=== PATIENT | female | born 1995 | race Two or more races ===

== ENCOUNTER 2016-10-28 16:39 | Emergency (ER) | payer OTHER ==
[2016-10-28 16:48] VITALS: BP 114/88
[2016-10-28] MEDS ORDERED: ONDANSETRON HCL INJ/PF 4 MG/2 ML SDV IV ONE (17:52)
[2016-10-28] MEDS ORDERED: NORMAL SALINE 1000 ML 1,000 ML IV PRN (17:52)
[2016-10-28 18:32] LABS: ABSOLUTE BASOPHILS # (AUTO) 0.1 10^3/uL (0.0-0.2); ABSOLUTE LYMPHOCYTES (AUTO) 2.1 10^3/uL (0.5-4.7); ABSOLUTE MONOCYTES (AUTO) 0.9 10^3/uL (0.1-1.4); ABSOLUTE NEUT (AUTO) 5.8 10^3/uL (1.7-8.2); BASOPHILS % (AUTO) 1.1 % (0-2); EOSINOPHILS % (AUTO) 0.4 % (0-6); HEMATOCRIT 50.1 % (36.0-47.0); HEMOGLOBIN 16.3 g/dL (12.0-15.5); HGB HCT DIFFERENCE -1.2; LYMPHOCYTES % (AUTO) 23.3 % (13-45); MEAN CORPUSCULAR HEMOGLOBIN 28.9 pg (27.0-33.4); MEAN CORPUSCULAR HGB CONC 32.5 g/dL (32.0-36.0); MEAN CORPUSCULAR VOLUME 89 fl (80-97); MONOCYTES % (AUTO) 10.2 % (3-13); RED BLOOD COUNT 5.63 10^6/uL (3.72-5.28); RED CELL DISTRIBUTION WIDTH 14.8 % (11.5-14.0)
--- NOTE | 2016-10-28 18:38 | ER Document Report ---
ED Medical Screen (RME) - General Chief Complaint: Headache Stated Complaint: HEADACHE,NAUSEA Time Seen by Provider: 10/28/16 17:51 Mode of Arrival: Ambulatory Information source: Patient - HPI Onset: Yesterday Onset/Duration: Gradual, Constant Quality of pain: Dull Associated Symptoms: Nausea Similar symptoms previously: Yes Notes: 10/28/16 18:36 Patient is a 21-year-old female who is visiting from out of town. Patient has history of type 1 diabetes. Patient is on insulin. Patient presents with several days of headache, nausea, and generalized weakness. Patient feels like her blood sugar is elevated. Patient reports last fingerstick at home was 120. No fevers or chills. Denies any urinary complaints. Patient has been in DKA in the past. - Related Data Allergies/Adverse Reactions: amoxicillin Allergy (Verified 10/28/16 17:47) Past Medical History - General Information source: Patient - Social History Frequency of alcohol use: None Drug Abuse: Marijuana Endocrine Medical History: Reports: Hx Diabetes Mellitus Type 1 Renal/ Medical History: Denies: Hx Peritoneal Dialysis Review of Systems - Review of Systems Gastrointestinal: Nausea Neurological/Psychological: Headaches -: Yes All other systems reviewed and negative Physical Exam - Vital signs Vitals: Temp Pulse Resp BP Pulse Ox 97.6 F 125 H 12 114/88 H 98 10/28/16 16:45 10/28/16 16:45 10/28/16 16:45 10/28/16 16:45 10/28/16 16:45 Interpretation: Normal - General General appearance: Appears well, Alert - HEENT Head: Normocephalic, Atraumatic Eyes: Normal Pupils: PERRL - Respiratory Respiratory status: No respiratory distress Chest status: Nontender Breath sounds: Normal Chest palpation: Normal - Cardiovascular Rhythm: Regular Heart sounds: Normal auscultation Murmur: No - Abdominal Inspection: Normal Distension: No distension Bowel sounds: Normal Tenderness: Nontender Organomegaly: No organomegaly - Back Back: Normal, Nontender - Extremities General upper extremity: Normal inspection, Nontender, Normal color, Normal ROM , Normal temperature General lower extremity: Normal inspection, Nontender, Normal color, Normal ROM , Normal temperature, Normal weight bearing. No: Lauryn's sign - Neurological Neuro grossly intact: Yes Cognition: Normal Orientation: AAOx4 [place] Coma Scale Eye Opening: Spontaneous [place] Coma Scale Verbal: Oriented [place] Coma Scale Motor: Obeys Commands [place] Coma Scale Total: 15 Speech: Normal Motor strength normal: LUE, RUE, LLE, RLE Sensory: Normal - Psychological Associated symptoms: Normal affect, Normal mood - Skin Skin Temperature: Warm Skin Moisture: Dry Skin Color: Normal Course - Vital Signs Vital signs: Temp Pulse Resp BP Pulse Ox 97.6 F 125 H 18 114/88 H 98 10/28/16 16:45 10/28/16 16:45 10/28/16 17:45 10/28/16 16:45 10/28/16 16:45 - Laboratory Result Diagrams: 10/28/16 18:15 10/28/16 18:15 Laboratory results interpreted by me: 10/28/16 18:04 POC Glucose 200 H
[2016-10-28 19:09] LABS: APPEARANCE,URINE SLIGHTLY-CLOUDY; BILIRUBIN,URINE SMALL (NEGATIVE); GLUCOSE, URINE >=500 mg/dL (NEGATIVE); KETONES,URINE 80 mg/dL (NEGATIVE); LEUKOCYTE ESTERASE,URINE NEGATIVE (NEGATIVE); NITRITE,URINE NEGATIVE (NEGATIVE); PROTEIN,URINE >=500 mg/dL (NEGATIVE); URINE SPECIFIC GRAVITY 1.028
[2016-10-28 19:53] LABS: ALANINE AMINOTRANSFERASE 29 U/L (9-52); ALBUMIN 4.8 g/dL (3.5-5.0); ALKALINE PHOSPHATASE 153 U/L (38-126); ASPARTATE AMINO TRANSFERASE 17 U/L (14-36); BILIRUBIN,DIRECT 0.4 mg/dL (0.0-0.4); BILIRUBIN,TOTAL 0.8 mg/dL (0.2-1.3); BLOOD UREA NITROGEN 13 mg/dL (7-20); CALCIUM 9.6 mg/dL (8.4-10.2); CREATININE RESULT 0.76 mg/dL (0.52-1.25); GLUCOSE 273 mg/dL (75-110); TOTAL PROTEIN 8.9 g/dL (6.3-8.2)
[2016-10-28 20:04] LABS: CARBON DIOXIDE 14 mmol/L (22-30); CHLORIDE 99 mmol/L (98-107); POTASSIUM 4.5 mmol/L (3.6-5.0)
[2016-10-28 20:10] LABS: ANION GAP 21 (5-19)
== END 2016-10-28 20:54 | disposition home or self-care (01) ==
LOC: ER 16:39
DX: R11.10 Vomiting, unspecified (principal); R51 Headache; E10.9 Type 1 diabetes mellitus without complications; Z79.4 Long term (current) use of insulin; R53.1 Weakness
CPT/HCPCS: 99284; 96361; 96374; 36415; 82962; 85025; 81025; 80053; 81001; J2405; J7030

== ENCOUNTER 2016-12-25 13:34 | Inpatient (IN) | payer OTHER ==
--- NOTE | 2016-12-25 13:54 | ER Document Report ---
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 Threw up this am x 4, woke up with sore throat and headache. Coma admission from DKA in June 2016 in [place]. Now lives here with dad, not established with local MD. Ketotic odor upon my entry into the room. pulse 103, pulse ox 98%, respiratory rate 20. Zofran given by EMS. Denies chest pain, has mild epigastric pain. No dysuria. Blood glucose HH today, insulin given at 1300 10 units of novolog in the 500's. Has not taken insulin in 3 days. Levimir 24u in am, Novolog 6 u prior to eating, none at night. PMH: genital herpes,DM1, psoriasis, anemis, , wisdom tooth extraction. - Related Data Allergies/Adverse Reactions: amoxicillin Allergy (Verified 12/25/16 14:09) Home Medications: Current Home Medications Insulin Aspart [Novolog Flexpen] 6 unit SUBCUT BIDACBS 12/25/16 [History] Insulin Detemir [Levemir Insulin 300 Units/3 ml Insuln.pen] 24 unit SUBCUT DAILY 12/25/16 [History] Past Medical History - General Information source: Patient - Social History Smoking Status: Never Smoker Frequency of alcohol use: None Drug Abuse: None Lives with: Family - dad Family History: Reviewed & Not Pertinent Endocrine Medical History: Reports: Hx Diabetes Mellitus Type 1 Renal/ Medical History: Denies: Hx Peritoneal Dialysis Past Surgical History: Reports: Other - Review of Systems - Review of Systems Constitutional: See HPI EENT: No symptoms reported Cardiovascular: No symptoms reported Respiratory: No symptoms reported Gastrointestinal: No symptoms reported Genitourinary: No symptoms reported Female Genitourinary: No symptoms reported Musculoskeletal: No symptoms reported Skin: No symptoms reported Hematologic/Lymphatic: No symptoms reported Neurological/Psychological: No symptoms reported Physical Exam - Vital signs Vitals: Resp BP Pulse Ox 21 H 139/93 H 100 12/25/16 13:45 12/25/16 13:45 12/25/16 13:45 Interpretation: Tachycardic, Tachypneic - General General appearance: Alert Notes: looks dry - HEENT Head: Normocephalic, Atraumatic Eyes: Normal Conjunctiva: Normal Pupils: PERRL Mucous membranes: Dry Pharynx: Normal Neck: Supple. No: Lymphadenopathy - Respiratory Respiratory status: No respiratory distress Chest status: Nontender Breath sounds: Normal Chest palpation: Normal - Cardiovascular Rhythm: Regular Heart sounds: Normal auscultation Murmur: No - Abdominal Inspection: Normal Distension: No distension Bowel sounds: Normal Tenderness: Nontender Organomegaly: No organomegaly. No: Hepatomegaly, Splenomegaly - Back Back: Normal, Nontender. No: CVA tenderness - Extremities General upper extremity: Normal inspection, Nontender, Normal color, Normal ROM , Normal temperature General lower extremity: Normal inspection, Nontender, Normal color, Normal ROM , Normal temperature, Normal weight bearing. No: Lauryn's sign - Neurological Neuro grossly intact: Yes Cognition: Normal Orientation: AAOx4 [place] Coma Scale Eye Opening: Spontaneous [place] Coma Scale Verbal: Oriented [place] Coma Scale Motor: Obeys Commands [place] Coma Scale Total: 15 Speech: Normal Motor strength normal: LUE, RUE, LLE, RLE Sensory: Normal - Psychological Associated symptoms: Normal affect, Normal mood - Skin Skin Temperature: Warm Skin Moisture: Dry Skin Color: Normal Skin irregularity: negative: Rash Course - Re-evaluation Re-evalutation: 12/25/16 15:[address] galloway who will admit the patient [facility]. Based on the chemistry results he wants 6 units of insulin IV and a 5 U/h insulin drip. Give second liter of normal saline bolus of normal saline at 150 an hour and Accu-Cheks per hour. Patient understands and is willing to stay for admission. 12/25/16 17:40 accucheck down to 91 after 6 units IV and 5 units in [address] galloway orders, insulin drip held, nurse calling dr galloway. accucheck repeated, 95. NS last 500ml ordered. pt looks better. pulse 110. - Vital Signs Vital signs: Temp Pulse Resp BP Pulse Ox 97.7 F 108 H 19 112/55 L 100 12/25/16 13:57 12/25/16 13:57 12/25/16 17:01 12/25/16 17:01 12/25/16 17:01 - Laboratory Result Diagrams: 12/25/16 14:39 12/25/16 14:39 Laboratory results interpreted by me: 12/25/16 12/25/16 12/25/16 14:20 14:39 14:39 WBC 12.4 H MCHC 31.2 L Seg Neutrophils % 89.0 H Lymphocytes % 7.4 L Monocytes % 2.9 L Absolute Neutrophils 11.0 H VBG pH 7.02 L* VBG pCO2 30.8 L VBG HCO3 7.8 L Carbon Dioxide Glucose Direct Bilirubin AST Alkaline Phosphatase Total Protein Urine Protein 100 H Urine Glucose (UA) >=500 H Urine Ketones 80 H 12/25/16 14:39 WBC MCHC Seg Neutrophils % Lymphocytes % Monocytes % Absolute Neutrophils VBG pH VBG pCO2 VBG HCO3 Carbon Dioxide < 5 L* Glucose 446 H* Direct Bilirubin 0.5 H AST 37 H Alkaline Phosphatase 186 H Total Protein 9.3 H Urine Protein Urine Glucose (UA) Urine Ketones Discharge - Discharge Clinical Impression: Diabetes diagnosis denial, Noncompliance with insulin home regiment Diabetic ketoacidosis Qualifiers: Diabetes mellitus type: type 1 Diabetes mellitus complication detail: without coma Qualified Code(s): E10.10 - Type 1 diabetes mellitus with ketoacidosis without coma Condition: Serious Disposition: ADMITTED INPATIENT Admitting Provider: Hospitalist Unit Admitted: DASH
[2016-12-25] MEDS ORDERED: NORMAL SALINE 1000 ML 1,000 ML IV ONE ×3 (13:55→15:46)
[2016-12-25 14:35] LABS: APPEARANCE,URINE CLEAR; BILIRUBIN,URINE NEGATIVE (NEGATIVE); GLUCOSE, URINE >=500 mg/dL (NEGATIVE); KETONES,URINE 80 mg/dL (NEGATIVE); LEUKOCYTE ESTERASE,URINE NEGATIVE (NEGATIVE); NITRITE,URINE NEGATIVE (NEGATIVE); PROTEIN,URINE 100 mg/dL (NEGATIVE); URINE SPECIFIC GRAVITY 1.025; UROBILINOGEN,URINE NEGATIVE mg/dL (<2.0)
[2016-12-25 15:06] LABS: VENOUS BLOOD BASE EXCESS -22.3 mmol/L; VENOUS BLOOD HCO3 7.8 mmol/L (20-32); VENOUS BLOOD PCO2 30.8 mmHg (35-63)
[2016-12-25 15:11] LABS: ABSOLUTE BASOPHILS # (AUTO) 0.1 10^3/uL (0.0-0.2); ABSOLUTE LYMPHOCYTES (AUTO) 0.9 10^3/uL (0.5-4.7); ABSOLUTE MONOCYTES (AUTO) 0.4 10^3/uL (0.1-1.4); BASOPHILS % (AUTO) 0.7 % (0-2); HEMATOCRIT 46.3 % (36.0-47.0); HEMOGLOBIN 14.4 g/dL (12.0-15.5); HGB HCT DIFFERENCE -3.1; LYMPHOCYTES % (AUTO) 7.4 % (13-45); MEAN CORPUSCULAR HEMOGLOBIN 29.7 pg (27.0-33.4); MEAN CORPUSCULAR HGB CONC 31.2 g/dL (32.0-36.0); MEAN CORPUSCULAR VOLUME 95 fl (80-97); MONOCYTES % (AUTO) 2.9 % (3-13); RED BLOOD COUNT 4.87 10^6/uL (3.72-5.28); RED CELL DISTRIBUTION WIDTH 13.7 % (11.5-14.0); WHITE BLOOD COUNT 12.4 10^3/uL (4.0-10.5)
[2016-12-25 15:15] LABS: VENOUS BLOOD PH 7.02 (7.30-7.42)
[2016-12-25 15:40] LABS: ALANINE AMINOTRANSFERASE 25 U/L (9-52); ALKALINE PHOSPHATASE 186 U/L (38-126); ASPARTATE AMINO TRANSFERASE 37 U/L (14-36); BILIRUBIN,DIRECT 0.5 mg/dL (0.0-0.4); BILIRUBIN,TOTAL 0.6 mg/dL (0.2-1.3); BLOOD UREA NITROGEN 14 mg/dL (7-20); CALCIUM 9.7 mg/dL (8.4-10.2); CHLORIDE 103 mmol/L (98-107); CREATININE RESULT 0.83 mg/dL (0.52-1.25); LIPASE 25.3 U/L (23-300); SODIUM 140.5 mmol/L (137-145); TOTAL PROTEIN 9.3 g/dL (6.3-8.2)
[2016-12-25] MEDS ORDERED: INSULIN REG, HUMAN 100 UNIT/ML 3 ML VIAL (PYX) IV ONE (15:45)
[2016-12-25] MEDS ORDERED: GLUCAGON,HUMAN RECOMB 1 MG INJ IM PRN ×2 (15:48→18:24)
[2016-12-25] MEDS ORDERED: DEXTROSE 50%-WATER 25 GM/50 ML DISP.SYRIN IV PRN ×4 (15:48→18:24)
[2016-12-25] MEDS ORDERED: NORMAL SALINE 100 ML with INSULIN REGULAR, HUMAN 100 UNIT IV PRN ×4 (15:48→18:26)
[2016-12-25] MEDS ORDERED: DEXTROSE 40% GEL 15 GM TUBE PO PRN ×4 (15:48→18:24)
[2016-12-25 15:50] LABS: GLUCOSE 446 mg/dL (75-110)
[2016-12-25 15:51] LABS: CARBON DIOXIDE < 5 mmol/L (22-30)
[2016-12-25] MEDS ORDERED: INSULIN REG, HUMAN 100 UNIT/ML 3 ML VIAL (PYX) ONE (16:05)
[2016-12-25] MEDS ORDERED: DEXTROSE 5%-1/2 NORMAL SALINE 1,000 ML IV PRN (18:24)
[2016-12-25] MEDS ORDERED: ONDANSETRON HCL INJ/PF 4 MG/2 ML SDV IV PRN (18:41)
[2016-12-25] MEDS ORDERED: ACETAMINOPHEN 325 MG TABLET PO PRN (18:41)
--- NOTE | 2016-12-25 19:01 | PDOC H&P ---
History of Present Illness Admission Date/PCP: 12/25/16 18:30 Patient complains of: Nausea vomiting and abdominal pain History of Present Illness: JOSE ALFREDO LORENZO is a 21 year old female With history of insulin-dependent diabetes mellitus missed her insulin dose yesterday while at work went home and sleep and upon waking up this morning developed nausea vomiting and abdominal pain. Denies any chills or fever. No melena hematochezia or hematemesis. No dysuria urgency or frequency. No diarrhea or constipation. No vaginal discharge or bleeding. The patient went back to work but his her symptoms did not worsen therefore went to the emergency room for evaluation. Patient felt generally weak. In the emergency room blood sugar was elevated, her anion gap is immeasurable, bicarbonate was less than 5. Patient was given 6 units of IV insulin and started on insulin drip at 5 U/h. Eventually her blood sugar trended down to normal and the insulin drip was held. Dextrose IV fluid was started after initial hydration of normal saline boluses were given. The patient was then admitted. Past Medical History Endocrine Medical History: Reports: Diabetes Mellitus Type 1 Hematology: Reports: Anemia Past Surgical History Past Surgical History: Reports: Other - , dental extraction Social History Information Source: Patient Lives with: Family - dad Smoking Status: Current Some Day Smoker Frequency of Alcohol Use: Occasional Hx Recreational Drug Use: No Drugs: None Family History Family History: None Parental Family History Reviewed: Yes Children Family History Reviewed: Yes Sibling(s) Family History Reviewed.: Yes Medication/Allergy Home Medications: Insulin Aspart [Novolog Flexpen] 6 unit SUBCUT BIDACBS 12/25/16 Insulin Detemir [Levemir Insulin 300 Units/3 ml Insuln.pen] 24 unit SUBCUT DAILY 12/25/16 Allergies/Adverse Reactions: amoxicillin Allergy (Verified 12/25/16 14:09) Review of Systems Constitutional: PRESENT: weakness - Generalized. ABSENT: chills, fever(s), headache(s), weight gain, weight loss Eyes: ABSENT: visual disturbances Ears: ABSENT: hearing changes Nose, Mouth, and Throat: ABSENT: mouth pain, sore throat Cardiovascular: ABSENT: chest pain, dyspnea on exertion, edema, orthropnea, palpitations Respiratory: ABSENT: cough, dyspnea, hemoptysis, sputum Gastrointestinal: PRESENT: abdominal pain, nausea, vomiting. ABSENT: coffee ground emesis, constipation, diarrhea, hematemesis, hematochezia, melena Genitourinary: ABSENT: difficulty urinating, dysuria, hematuria Musculoskeletal: ABSENT: back pain, deformity, joint swelling Integumentary: ABSENT: pruritus, rash, wounds Neurological: ABSENT: abnormal gait, abnormal speech, confusion, dizziness, focal weakness, syncope Psychiatric: ABSENT: anxiety, depression, homidical ideation, suicidal ideation Endocrine: PRESENT: polyphagia, polyuria. ABSENT: cold intolerance, heat intolerance, polydipsia Hematologic/Lymphatic: ABSENT: easy bleeding, easy bruising Physical Exam Vital Signs: Temp Pulse Resp BP Pulse Ox 97.7 F 108 H 19 112/55 L 100 12/25/16 13:57 12/25/16 13:57 12/25/16 17:01 12/25/16 17:01 12/25/16 17:01 General appearance: PRESENT: no acute distress, well-developed, well-nourished Head exam: PRESENT: atraumatic, normocephalic Eye exam: PRESENT: conjunctiva pink, EOMI, PERRLA. ABSENT: scleral icterus Ear exam: PRESENT: normal external ear exam Mouth exam: PRESENT: moist, neck supple, tongue midline Throat exam: ABSENT: post pharyngeal erythema, tonsillar erythema, tonsillar exudate Neck exam: ABSENT: carotid bruit, JVD, lymphadenopathy, thyromegaly Respiratory exam: PRESENT: clear to auscultation aba, unlabored. ABSENT: rales , rhonchi, wheezes Cardiovascular exam: PRESENT: RRR. ABSENT: diastolic murmur, rubs, systolic murmur Pulses: PRESENT: normal dorsalis pedis pul Vascular exam: PRESENT: normal capillary refill GI/Abdominal exam: PRESENT: hyperactive bowel sounds, soft. ABSENT: distended, guarding, mass, organolmegaly, rebound, tenderness Rectal exam: PRESENT: deferred Extremities exam: PRESENT: full ROM. ABSENT: calf tenderness, clubbing, pedal edema Neurological exam: PRESENT: alert, awake, oriented to person, oriented to place , oriented to time, oriented to situation Psychiatric exam: PRESENT: appropriate affect, normal mood. ABSENT: homicidal ideation, suicidal ideation Skin exam: PRESENT: dry, intact, warm. ABSENT: cyanosis, rash Assessment & Plan - Diagnosis (1) Diabetic ketoacidosis Qualifiers: Diabetes mellitus type: type 1 Diabetes mellitus complication detail: without coma Qualified Code(s): E10.10 - Type 1 diabetes mellitus with ketoacidosis without coma Is this a current diagnosis for this admission?: Yes (2) Dehydration Is this a current diagnosis for this admission?: Yes (3) Leukocytosis Qualifiers: Leukocytosis type: unspecified Qualified Code(s): D72.829 - Elevated white blood cell count, unspecified Is this a current diagnosis for this admission?: Yes - Time Time Spent: 50 to 70 Minutes Anticipated discharge: Home Within: within 48 hours - Inpatient Certification Based on my medical assessment, after consideration of the patient's comorbidities, presenting symptoms, or acuity I expect that the services needed warrant INPATIENT care.: Yes I certify that my determination is in accordance with my understanding of Medicare's requirements for reasonable and necessary INPATIENT services [42 CFR 412.3e].: Yes Medical Necessity: Need Close Monitoring Due to Risk of Patient Decompensation, Need For IV Fluids, Need For Continuous Telemetry Monitoring, Risk of Complication if Not Cared For in Hospital, Risk of Diagnosis Which Will Require Inpatient Eval/Care/Monitoring Post Hospital Care: D/C Rehab Nurse Documentation - Plan Summary Plan Summary: The patient will be admitted to [facility]. We will continue dextrose containing IV fluids and keep the insulin drip until the anion gap normalizes and subsequently transition to subcutaneous insulin. At this point she will be n.p.o. until she is symptomatically improved, we will continue intravenous hydration, monitor serum chemistries every 4 hours. As needed analgesics, antipyretics, and anti-emetics will be given. We will give DVT prophylaxis. Further testing depends on the initial evaluation and response to treatment as outlined above.
[2016-12-25 21:43] LABS: BLOOD UREA NITROGEN 10 mg/dL (7-20); CALCIUM 9.1 mg/dL (8.4-10.2); CREATININE RESULT 0.62 mg/dL (0.52-1.25); GLUCOSE 221 mg/dL (75-110)
[2016-12-25 21:58] LABS: CHLORIDE 107 mmol/L (98-107); POTASSIUM 4.7 mmol/L (3.6-5.0); SODIUM 138.1 mmol/L (137-145)
[2016-12-25 22:02] LABS: ANION GAP 22 (5-19)
[2016-12-25 22:04] LABS: CARBON DIOXIDE 9 mmol/L (22-30)
[2016-12-25 23:10] LABS: ANION GAP 13 (5-19); BLOOD UREA NITROGEN 9 mg/dL (7-20); CALCIUM 9.1 mg/dL (8.4-10.2); CARBON DIOXIDE 14 mmol/L (22-30); CHLORIDE 108 mmol/L (98-107); CREATININE RESULT 0.54 mg/dL (0.52-1.25); GLUCOSE 146 mg/dL (75-110); POTASSIUM 4.2 mmol/L (3.6-5.0); SODIUM 135.1 mmol/L (137-145)
[2016-12-26 01:31] LABS: ANION GAP 14 (5-19); BLOOD UREA NITROGEN 9 mg/dL (7-20); CALCIUM 8.8 mg/dL (8.4-10.2); CARBON DIOXIDE 16 mmol/L (22-30); CHLORIDE 108 mmol/L (98-107); CREATININE RESULT 0.58 mg/dL (0.52-1.25); GLUCOSE 94 mg/dL (75-110); POTASSIUM 3.6 mmol/L (3.6-5.0); SODIUM 137.5 mmol/L (137-145)
[2016-12-26] MEDS ORDERED: POTASSI CL 20 MEQ/50 ML RIDER 20 MEQ/50 ML RTUPB IV SCH (02:00)
[2016-12-26] MEDS: POTASSIUM CHLORIDE 20 MEQ/15 ML UDCUP PO SCH ×2 (02:41→04:42)
[2016-12-26 05:14] LABS: APPEARANCE,URINE SLIGHTLY-CLOUDY; BILIRUBIN,URINE NEGATIVE (NEGATIVE); GLUCOSE, URINE 150 mg/dL (NEGATIVE); KETONES,URINE 80 mg/dL (NEGATIVE); LEUKOCYTE ESTERASE,URINE MODERATE (NEGATIVE); NITRITE,URINE NEGATIVE (NEGATIVE); PROTEIN,URINE NEGATIVE (NEGATIVE); URINE SPECIFIC GRAVITY 1.013; UROBILINOGEN,URINE NEGATIVE mg/dL (<2.0)
[2016-12-26 05:43] LABS: ANION GAP 14 (5-19); BLOOD UREA NITROGEN 7 mg/dL (7-20); CALCIUM 8.8 mg/dL (8.4-10.2); CARBON DIOXIDE 14 mmol/L (22-30); CHLORIDE 108 mmol/L (98-107); CREATININE RESULT 0.54 mg/dL (0.52-1.25); GLUCOSE 142 mg/dL (75-110); POTASSIUM 4.3 mmol/L (3.6-5.0); SODIUM 136.4 mmol/L (137-145)
[2016-12-26] MEDS: LANSOPRAZOLE 30 MG TAB.RAP.DR PO SCH ×2 (06:05→16:44)
[2016-12-26 06:34] LABS: ABSOLUTE BASOPHILS # (AUTO) 0.1 10^3/uL (0.0-0.2); ABSOLUTE EOSINOPHILS # (AUTO) 0.1 10^3/uL (0.0-0.6); ABSOLUTE LYMPHOCYTES (AUTO) 1.7 10^3/uL (0.5-4.7); ABSOLUTE MONOCYTES (AUTO) 0.8 10^3/uL (0.1-1.4); ABSOLUTE NEUT (AUTO) 3.9 10^3/uL (1.7-8.2); BASOPHILS % (AUTO) 0.8 % (0-2); EOSINOPHILS % (AUTO) 1.5 % (0-6); HEMATOCRIT 35.9 % (36.0-47.0); HGB HCT DIFFERENCE 0.7; LYMPHOCYTES % (AUTO) 25.7 % (13-45); MEAN CORPUSCULAR HEMOGLOBIN 30.7 pg (27.0-33.4); MONOCYTES % (AUTO) 11.9 % (3-13); RED BLOOD COUNT 3.97 10^6/uL (3.72-5.28); RED CELL DISTRIBUTION WIDTH 13.7 % (11.5-14.0); SEGMENTED NEUTROPHILS % (AUTO) 60.1 % (42-78); WHITE BLOOD COUNT 6.5 10^3/uL (4.0-10.5)
[2016-12-26 06:38] LABS: MEAN CORPUSCULAR VOLUME 90 fl (80-97)
[2016-12-26 06:39] LABS: HEMOGLOBIN 12.2 g/dL (12.0-15.5)
[2016-12-26] MEDS ORDERED: DEXTROSE 40% GEL 15 GM TUBE PO PRN ×2 (09:05)
[2016-12-26] MEDS ORDERED: DEXTROSE 50%-WATER 25 GM/50 ML DISP.SYRIN IV PRN ×2 (09:05)
[2016-12-26] MEDS ORDERED: GLUCAGON,HUMAN RECOMB 1 MG INJ IM PRN (09:05)
[2016-12-26] MEDS ORDERED: NORMAL SALINE 1000 ML 1,000 ML IV PRN (09:10)
--- NOTE | 2016-12-26 09:14 | PDOC PROGRESS REPORT ---
Subjective Progress Note for:: 12/26/16 Subjective:: Patient is feeling much better and wants to eat. Denies any chills fever nausea or vomiting. No PND orthopnea. No shortness of breath or chest pain. No cough no diarrhea no pleurisy nor PND orthopnea. Physical Exam Vital Signs: Temp Pulse Resp BP Pulse Ox 97.8 F 90 16 94/53 L 100 12/26/16 07:13 12/26/16 07:13 12/26/16 07:13 12/26/16 07:13 12/26/16 07:13 Intake & Output 12/25/16 12/26/16 12/27/16 06:59 06:59 06:59 Intake Total 1289 Output Total 0 Balance 1289 Weight 63.4 kg General appearance: PRESENT: no acute distress, cooperative Head exam: PRESENT: normocephalic Eye exam: PRESENT: EOMI Mouth exam: PRESENT: moist, neck supple Neck exam: ABSENT: JVD Respiratory exam: PRESENT: rhonchi, wheezes. ABSENT: clear to auscultation aba GI/Abdominal exam: PRESENT: soft. ABSENT: distended, tenderness Extremities exam: ABSENT: pedal edema Neurological exam: PRESENT: alert, awake, oriented to situation Skin exam: PRESENT: dry, warm. ABSENT: cyanosis Results Laboratory Results: 12/26/16 06:10 12/25/16 12/25/16 12/25/16 20:50 20:50 22:52 WBC RBC Hgb Hct MCV MCH MCHC RDW Plt Count Seg Neutrophils % Lymphocytes % Monocytes % Eosinophils % Basophils % Absolute Neutrophils Absolute Lymphocytes Absolute Monocytes Absolute Eosinophils Absolute Basophils Sodium 138.1 135.1 L Potassium 4.7 4.2 Chloride 107 108 H Carbon Dioxide 9 L* 14 L Anion Gap 22 H 13 BUN 10 9 Creatinine 0.62 0.54 Est GFR ( Amer) > 60 > 60 Est GFR (Non-Af Amer) > 60 > 60 Glucose 221 H 146 H Calcium 9.1 9.1 TSH 0.50 Urine Color Urine Appearance Urine pH Ur Specific [place] Urine Protein Urine Glucose (UA) Urine Ketones Urine Blood Urine Nitrite Ur Leukocyte Esterase Urine WBC (Auto) Urine RBC (Auto) 12/26/16 12/26/16 12/26/16 00:56 04:45 05:06 WBC Cancelled RBC Cancelled Hgb Cancelled Hct Cancelled MCV Cancelled MCH Cancelled MCHC Cancelled RDW Cancelled Plt Count Cancelled Seg Neutrophils % Cancelled Lymphocytes % Cancelled Monocytes % Cancelled Eosinophils % Cancelled Basophils % Cancelled Absolute Neutrophils Cancelled Absolute Lymphocytes Cancelled Absolute Monocytes Cancelled Absolute Eosinophils Cancelled Absolute Basophils Cancelled Sodium 137.5 Potassium 3.6 Chloride 108 H Carbon Dioxide 16 L Anion Gap 14 BUN 9 Creatinine 0.58 Est GFR ( Amer) > 60 Est GFR (Non-Af Amer) > 60 Glucose 94 Calcium 8.8 TSH Urine Color YELLOW Urine Appearance SLIGHTLY-CLOUDY Urine pH 6.0 Ur Specific [place] 1.013 Urine Protein NEGATIVE Urine Glucose (UA) 150 H Urine Ketones 80 H Urine Blood LARGE H Urine Nitrite NEGATIVE Ur Leukocyte Esterase MODERATE H Urine WBC (Auto) 54 Urine RBC (Auto) 9 12/26/16 12/26/16 05:06 06:10 WBC 6.5 RBC 3.97 Hgb 12.2 D Hct 35.9 L MCV 90 D MCH 30.7 MCHC 34.0 RDW 13.7 Plt Count 288 Seg Neutrophils % 60.1 Lymphocytes % 25.7 Monocytes % 11.9 Eosinophils % 1.5 Basophils % 0.8 Absolute Neutrophils 3.9 Absolute Lymphocytes 1.7 Absolute Monocytes 0.8 Absolute Eosinophils 0.1 Absolute Basophils 0.1 Sodium 136.4 L Potassium 4.3 Chloride 108 H Carbon Dioxide 14 L Anion Gap 14 BUN 7 Creatinine 0.54 Est GFR ( Amer) > 60 Est GFR (Non-Af Amer) > 60 Glucose 142 H Calcium 8.8 TSH Urine Color Urine Appearance Urine pH Ur Specific [place] Urine Protein Urine Glucose (UA) Urine Ketones Urine Blood Urine Nitrite Ur Leukocyte Esterase Urine WBC (Auto) Urine RBC (Auto) Assessment & Plan - Diagnosis (1) Diabetic ketoacidosis Qualifiers: Diabetes mellitus type: type 1 Diabetes mellitus complication detail: without coma Qualified Code(s): E10.10 - Type 1 diabetes mellitus with ketoacidosis without coma Is this a current diagnosis for this admission?: Yes (2) Dehydration Is this a current diagnosis for this admission?: Yes (3) Leukocytosis Qualifiers: Leukocytosis type: unspecified Qualified Code(s): D72.829 - Elevated white blood cell count, unspecified Is this a current diagnosis for this admission?: Yes - Time Time Spent with patient: 25-34 minutes - Plan Summary Plan Summary: We will transition to subcutaneous insulin. Begin diet. We will give antibiotics for urinary tract infection. Continue gentle hydration.
[2016-12-26 09:43] LABS: ANION GAP 16 (5-19); BLOOD UREA NITROGEN 5 mg/dL (7-20); CALCIUM 9.2 mg/dL (8.4-10.2); CARBON DIOXIDE 15 mmol/L (22-30); CHLORIDE 108 mmol/L (98-107); CREATININE RESULT 0.52 mg/dL (0.52-1.25); GLUCOSE 96 mg/dL (75-110); POTASSIUM 4.1 mmol/L (3.6-5.0); SODIUM 138.7 mmol/L (137-145)
[2016-12-26] MEDS: DOCUSATE SODIUM 100 MG CAPSULE PO SCH ×2 (09:46→18:04)
[2016-12-26] MEDS: ENOXAPARIN SODIUM INJ 40 MG/0.4 ML DISP.SYRIN SUBCUT SCH (09:46)
[2016-12-26] MEDS: LEVOFLOXACIN 750 MG/D5W RTU 750 MG/150 ML RTUPB IV SCH (09:48)
[2016-12-26] MEDS: INSULIN DETEMIR 100 UNIT/ML 3 ML PEN SUBCUT SCH (09:59)
[2016-12-26] MEDS: INSULIN LISPRO 100 UNIT/ML 3 ML VIAL SUBCUT SCH ×2 (12:08→16:44)
[2016-12-26] MEDS: INSULIN REG, HUMAN 100 UNIT/ML 3 ML VIAL (PYX) SUBCUT PRN ×2 (12:10→16:45)
[2016-12-27] MEDS: LANSOPRAZOLE 30 MG TAB.RAP.DR PO SCH (06:11)
[2016-12-27] MEDS: INSULIN LISPRO 100 UNIT/ML 3 ML VIAL SUBCUT SCH (09:01)
[2016-12-27] MEDS: DOCUSATE SODIUM 100 MG CAPSULE PO SCH (10:17)
[2016-12-27] MEDS: ENOXAPARIN SODIUM INJ 40 MG/0.4 ML DISP.SYRIN SUBCUT SCH (10:17)
[2016-12-27] MEDS ORDERED: INSULIN LISPRO 100 UNIT/ML 3 ML VIAL SUBCUT PRN (10:18)
[2016-12-27 11:47] VITALS: BP 105/59
[2016-12-27] MEDS: LEVOFLOXACIN 750 MG/D5W RTU 750 MG/150 ML RTUPB IV SCH (11:50)
--- NOTE | 2016-12-27 11:50 | PDOC DISCHARGE SUMMARY ---
General - Admit/Disc Date/PCP Admission Date/Primary Care Provider: 12/25/16 18:27 Discharge Date: 12/27/16 - Discharge Diagnosis (1) Diabetic ketoacidosis Is this a current diagnosis for this admission?: Yes (2) Dehydration Is this a current diagnosis for this admission?: Yes (3) Leukocytosis Is this a current diagnosis for this admission?: Yes - Additional Information Discharge Diet: As Tolerated, Diabetic - No concentrated sweets Discharge Activity: Activity As Tolerated, Balance Activity w/Rest Home Medications: Insulin Aspart [Novolog Flexpen] 6 unit SUBCUT BIDACBS 12/25/16 Insulin Detemir [Levemir Insulin 100 units/mL] 24 unit SUBCUT DAILY 12/25/16 Sulfamethoxazole/Trimethoprim [Bactrim Ds Tablet] 1 each PO BID #4 tablet Additional Information: Measured blood sugar 3 times a day and record bring to next physician visit History of Present Illness Patient complains of: Nausea vomiting abdominal pain. History of Present Illness: JOSE ALFREDO LORENZO is a 21 year old female With history of insulin-dependent diabetes mellitus missed her insulin dose yesterday while at work went home and sleep and upon waking up this morning developed nausea vomiting and abdominal pain. Denies any chills or fever. No melena hematochezia or hematemesis. No dysuria urgency or frequency. No diarrhea or constipation. No vaginal discharge or bleeding. The patient went back to work but his her symptoms did not worsen therefore went to the emergency room for evaluation. Patient felt generally weak. In the emergency room blood sugar was elevated, her anion gap is immeasurable, bicarbonate was less than 5. Patient was given 6 units of IV insulin and started on insulin drip at 5 U/h. Eventually her blood sugar trended down to normal and the insulin drip was held. Dextrose IV fluid was started after initial hydration of normal saline boluses were given. The patient was then admitted. Hospital Course Hospital Course: The patient was admitted to [facility]. Intravenous fluid was started. She was kept n.p.o. Insulin drip was likewise started and continued. Serial chemistries were performed and eventually the patient's anion gap normalized and blood sugar got better controlled. She was transitioned to subcutaneous insulin and begun on oral intake with diabetic diet and tolerated it well. She was resumed on her insulin and prandial coverage. Lighting scale was added as well. Patient improved and eventually wanted to go home. Her course was noted for abnormal urinalysis likely urinary tract infection and antibiotic was started. The rest of the hospital stays unremarkable. She was eventually discharged home improved with instructions to measure blood sugar 3 times a day and record and bring to next physician visit. Physical Exam Vital Signs: Temp Pulse Resp BP Pulse Ox 98.4 F 93 16 105/59 L 99 12/27/16 11:20 12/27/16 11:20 12/27/16 11:20 12/27/16 11:20 12/27/16 11:20 Intake & Output 12/26/16 12/27/16 12/28/16 06:59 06:59 06:59 Intake Total 1289 2399 Output Total 0 300 Balance 1289 2099 Weight 63.4 kg 66.4 kg General appearance: PRESENT: no acute distress, cooperative Head exam: PRESENT: normocephalic Eye exam: PRESENT: EOMI Mouth exam: PRESENT: moist, neck supple Neck exam: ABSENT: JVD Respiratory exam: PRESENT: clear to auscultation aba. ABSENT: rhonchi, wheezes GI/Abdominal exam: PRESENT: soft. ABSENT: distended, tenderness Extremities exam: ABSENT: pedal edema Neurological exam: PRESENT: alert, awake, oriented to situation Skin exam: PRESENT: dry, warm. ABSENT: cyanosis Results Laboratory Results: 12/26/16 06:10 12/26/16 09:16 Qualifiers PATEINT BEING DISCHARGED WITH ANY OF THE FOLLOWING DIAGNOSIS?: No Plan Discharge Plan: Follow-up with primary care physician in 1 week. Time Spent: Less than 30 Minutes
[2016-12-27] MEDS: INSULIN DETEMIR 100 UNIT/ML 3 ML PEN SUBCUT SCH (12:00)
== END 2016-12-27 12:45 | disposition home or self-care (01) | DRG 639 ==
LOC: ER 13:34 → EH 18:27 → UNDOADMIN 18:30 → EH 18:30 → 3N 20:02
DX: E10.10 Type 1 diabetes mellitus with ketoacidosis without coma (principal); E86.0 Dehydration; Z79.4 Long term (current) use of insulin; F17.200 Nicotine dependence, unspecified, uncomplicated; Z88.1 Allergy status to other antibiotic agents
CPT/HCPCS: 36415; 80048; 80053; 81001; 82803; 82962; 83690; 84443; 84703; 85025; 87086; 96360; 96361; 99284; J1650; J1815; J1956; J7030